=== PATIENT | female | born 1985 | race African-American/Black ===

== ENCOUNTER 2018-01-09 02:48 | Emergency (ER) | payer OTHER ==
[~2018-01-09] VITALS: Ht 165.1 cm; Wt 94.3 kg
[~2018-01-09 02:48] MED LIST: AMOXICILLIN 50500 M1 PO; FEOSOL45 M1; LABETALOL 100100 MG; NORCO 5-325 TA1 EACH PO; PERMETHRIN60 GM TOP; PROAIR RESPICL90 MCG INH; SILVADENE20 GM TP; TRINATE TABLET1 TAB PO
[2018-01-09 03:01] VITALS: BP 172/120
[2018-01-09] MEDS ORDERED: MOBIC15 MG PO (04:03)
[2018-01-09] MEDS ORDERED: NORCO 5-325 TA1 EACH PO (04:03)
[2018-01-09] MEDS ORDERED: VALIUM5 MG PO (04:03)
== END 2018-01-09 04:43 | disposition home or self-care (01) ==
LOC: ER 02:48
DX: S39.012A Strain of muscle, fascia and tendon of lower back, initial encounter (principal); I10 Essential (primary) hypertension; X50.1XXA Overexertion from prolonged static or awkward postures, initial encounter; Y92.89 Other specified places as the place of occurrence of the external cause; Y93.89 Activity, other specified; Y99.8 Other external cause status

== ENCOUNTER 2018-03-05 03:51 | Emergency (ER) | payer OTHER ==
[~2018-03-05] VITALS: Ht 165.1 cm; Wt 81.7 kg
--- NOTE | ~2018-03-05 | EKG ---
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
[~2018-03-05 03:51] MED LIST changes: +MOBIC15 MG PO; +VALIUM5 MG PO
[2018-03-05 04:43] LABS: HEMATOCRIT 43.5 % (37.0-47.0); MCH 31.7 pg (26.0-34.0); MCHC 34.5 g/dL (28.0-37.0); MCV 91.8 fL (80.0-100.0); PLATELET COUNT 284 thou/uL (150-400); RBC 4.74 mil/uL (4.20-5.00); RDW 13.1 % (10.5-14.5); WBC 6.2 thou/uL (4.0-11.0)
[2018-03-05 04:45] LABS: URINE BILIRUBIN NEGATIVE (Negative); URINE BLOOD NEGATIVE (Negative); URINE CLARITY CLEAR; URINE COLOR YELLOW; URINE GLUCOSE-RANDOM* NEGATIVE (Negative); URINE KETONES NEGATIVE (Negative); URINE LEUKOCYTES NEGATIVE (Negative); URINE NITRITE NEGATIVE (Negative); URINE PROTEIN (DIPSTICK) TRACE (Negative); URINE SPECIFIC GRAVITY 1.025 (1.005-1.035); URINE UROBILINOGEN 0.2 E.U./dl (0.2-1.0)
[2018-03-05 04:47] LABS: ANION GAP 6 mmol/L (7-16); BUN 6 mg/dL (7-18); CALCIUM 9.2 mg/dL (8.5-10.1); CHLORIDE 101 mmol/L (98-107); CO2 28 mmol/L (21-32); CREATININE 1.1 mg/dL (0.6-1.0); GLUCOSE 117 mg/dL (74-106); POTASSIUM 3.2 mmol/L (3.5-5.1); SODIUM 135 mmol/L (136-145)
[2018-03-05 04:56] LABS: ALBUMIN 3.7 g/dL (3.4-5.0); MAGNESIUM 2.1 mg/dL (1.8-2.4); SGOT 36 U/L (15-37); SGPT 44 U/L (30-65); TOTAL BILIRUBIN 0.5 mg/dL (<0.1-1.0); TOTAL PROTEIN 8.3 g/dL (6.4-8.2); TROPONIN-I <0.06 ng/mL (<0.06)
[2018-03-05] MEDS ORDERED: NORFLEX100 MG PO (05:42)
[2018-03-05] MEDS ORDERED: BUTALB-APAP-CA1 EACH PO (05:42)
[2018-03-05] MEDS ORDERED: CLONIDINE0.1 PO (05:42)
[2018-03-05 05:54] LABS: ABSOLUTE NEUTROPHILS 3.2 thou/uL (1.4-8.2); ATYPICAL LYMPHS 5 %
[2018-03-05 06:24] VITALS: BP 169/104
== END 2018-03-05 06:25 | disposition home or self-care (01) ==
LOC: ER 03:51
PROVIDERS: Emergency Medicine
DX: G44.209 Tension-type headache, unspecified, not intractable (principal); M43.6 Torticollis; H53.8 Other visual disturbances; I10 Essential (primary) hypertension; R20.2 Paresthesia of skin

== ENCOUNTER 2019-05-19 08:24 | Emergency (ER) | payer OTHER ==
[~2019-05-19] VITALS: Ht 165.1 cm; Wt 86.2 kg
[~2019-05-19 08:24] MED LIST changes: +BUTALB-APAP-CA1 EACH PO; +CLONIDINE0.1 PO; +NORFLEX100 MG PO
[2019-05-19] MEDS ORDERED: KEPPRA XR500 MG PO (08:37)
[2019-05-19 09:18] LABS: HEMATOCRIT 39.3 % (37.0-47.0); HEMOGLOBIN 13.5 gm/dL (12.0-15.0); MCH 31.4 pg (26.0-34.0); MCHC 34.2 g/dL (28.0-37.0); MCV 91.7 fL (80.0-100.0); RBC 4.29 mil/uL (4.20-5.00); RDW 13.6 % (10.5-14.5); WBC 6.7 thou/uL (4.0-11.0)
[2019-05-19 09:37] LABS: CALCIUM 9.4 mg/dL (8.5-10.1); POTASSIUM 3.3 mmol/L (3.5-5.1)
[2019-05-19] MEDS ORDERED: KEPPRA 500 MG500 MG PO (09:45)
[2019-05-19 10:21] VITALS: BP 136/72
== END 2019-05-19 10:22 | disposition home or self-care (01) ==
LOC: ER 08:24
PROVIDERS: Emergency Medicine Emergency Medical Services
DX: R56.9 Unspecified convulsions (principal); E87.6 Hypokalemia; F17.210 Nicotine dependence, cigarettes, uncomplicated; I10 Essential (primary) hypertension; Z79.899 Other long term (current) drug therapy